=== PATIENT | female | born 1965 | race Caucasian/White ===

== ENCOUNTER 2016-12-01 06:00 | Day surgery (SDC) | payer OTHER ==
[2016-11-28 09:31] VITALS: BMI 29.5
[2016-12-01] MEDS ORDERED: ROPIVACAINE HCL 0.5% 30ML VIAL ONE (07:03)
[2016-12-01] MEDS ORDERED: DEXAMETHASONE SOD PHOSPHATE/PF 10 MG/ML SDV ONE (07:03)
[2016-12-01] MEDS ORDERED: MIDAZOLAM HCL 2 MG/2 ML SINGLE DOSE VIAL ONE ×2 (07:03→07:29)
[2016-12-01] MEDS ORDERED: BUPIVACAINE HCL/EPINEPHRINE/PF 30 ML VIAL IJ ONE (07:10)
[2016-12-01] MEDS ORDERED: PROPOFOL 20 ML ONE ×4 (07:10→08:03)
[2016-12-01] MEDS ORDERED: SUCCINYLCHOLINE CHLORIDE 200 MG/10 ML VIAL ONE (07:10)
[2016-12-01] MEDS ORDERED: ATROPINE SO4 0.4 MG/1 ML VIAL ONE (07:11)
[2016-12-01] MEDS ORDERED: EPINEPHrine 1:1,000 1 MG/1 ML - 30ML VIAL (INJECTION) ONE (07:28)
--- NOTE | 2016-12-01 07:28 | HP ---
Admitting History and Physical - Admission Chief Complaint: 51 yo F presents on 12/01/16 for planned right shoulder arthroscopy and rotator cuff repair with Dr. Gee. History of Present Illness: Patient has had chronic right shoulder pain for the past 3 years. She fell on her right shoulder one year ago which furthered her symptoms. Patient presents on 12/01/16 for planned right shoulder arthroscopy and rotator cuff repair with Dr. Gee. 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: Alzheimer's, CVA, Dementia, Migraine, Multiple Sclerosis, Peripheral Neuropathy, Parkinson's, Seizure, Syncope, TIA, Vertigo, Other Cardiovascular: Yes: Hyperlipdemia Pulmonary: No: Asthma, Bronchitis, Cancer, COPD, O2 Dependent, Pneumonia, Previously Intubated, Pulmonary Embolus, Pulmonary Fibrosis, Sleep Apnea, Other Gastrointestinal: No: Ascites, Cancer, Constipation, Crohn's Disease, Diverticulitis, Diverticulosis, Esophageal Varices, Gastritis, GERD, GI Bleed, Hemorrhoids, Hiatal Hernia, Inflamatory Bowel Disease, Irritable Bowel Disease, Pancreatitis, Peptic Ulcer Disease, Ulcerative Colitis, Other Hepatobiliary: No: Cirrhosis, Cholelithiasis, Cholecystitis, Choledocholithiasis , Hepatitis A, Hepatitis B, Hepatitis C, Other Renal/: No: Renal Failure, Renal Inusuff, BPH, Cancer, Hematuria, Hemodialysis , Neurogenic Bladder, Renal Calculi, UTI, Other ...LMP: 09/20/16 ...: No Heme/Onc: No: Anemia, B12 Deficiency, Bleeding Disorder, Cancer, Current Chemotherapy, Current Radiation Therapy, Hemochromatosis, Hypercoaguable State, Myeloproliferative Synd, Sickle Cell Disease, Sickle Cell Trait, Thrombocytopenia, Other Infectious Disease: No: AIDS, C-Diff, Herpes Zoster, HIV, MRSA, STD's, Tuberculosis, VREF, Other Psych: Yes: Anxiety Musculoskeletal: Yes: Other (Right shoulder pain) - Past Surgical History Additional Past Surgical History: Blepharoplasty - Smoking History Smoking history: Never smoked - Alcohol/Substance Use Hx Alcohol Use: No - Social History ADL: Independent Home Medications - Allergies Allergies/Adverse Reactions: Allergies Allergy/AdvReac Type Severity Reaction Status Date / Time No Known Drug Allergies Allergy Verified 12/01/16 06:55 cats Allergy Uncoded 12/01/16 06:55 seasonal Allergy Uncoded 12/01/16 06:55 - Home Medications Home Medications: Ambulatory Orders Alprazolam [Xanax] 0.25 mg PO DAILY PRN 11/28/16 Atorvastatin Ca [Lipitor] 10 mg PO HS 11/28/16 Review of Systems - Review of Systems Constitutional: reports: No Symptoms Neck: reports: No Symptoms Cardiovascular: reports: No Symptoms Respiratory: reports: No Symptoms Gastrointestinal: reports: No Symptoms Genitourinary: reports: No Symptoms Musculoskeletal: reports: Extremity Pain (Right shoulder) Integumentary: reports: No Symptoms Neurological: reports: No Symptoms Hematology/Lymphatic: reports: No Symptoms Physical Examination Vital Signs: Vital Signs Temperature 97.7 F 12/01/16 06:49 Pulse Rate 70 12/01/16 06:49 Respiratory Rate 16 12/01/16 06:49 Blood Pressure 116/74 12/01/16 06:49 O2 Sat by Pulse Oximetry (%) 99 12/01/16 06:54 Constitutional: Yes: Well Nourished, No Distress, Calm Eyes: Yes: WNL HENT: Yes: WNL Neck: Yes: WNL Cardiovascular: Yes: WNL Respiratory: Yes: WNL Gastrointestinal: Yes: WNL Musculoskeletal: Yes: WNL Integumentary: Yes: WNL Neurological: Yes: Alert, Oriented Problem List - Problems (1) Right shoulder pain Assessment/Plan: 51 yo F presents on 12/01/16 for planned right shoulder arthroscopy and rotator cuff repair with Dr. Gee. Code(s): M25.511 - PAIN IN RIGHT SHOULDER Assessment/Plan 51 yo F presents on 12/01/16 for planned right shoulder arthroscopy and rotator cuff repair with Dr. Gee.
[2016-12-01] MEDS ORDERED: ONDANSETRON 4 MG/2 ML VIAL ONE (07:49)
[2016-12-01] MEDS ORDERED: oxyCODONE HCL 10 MG SUSTAINED ACTING TABLET PO ONE (08:33)
[2016-12-01] MEDS ORDERED: oxyCODONE HCL 5 MG TABLET PO PRN (08:33)
--- NOTE | 2016-12-01 08:35 | OP ---
Operative Note - Note: Operative Date: 12/01/16 Pre-Operative Diagnosis: Right shoulder RCT Operation: RSA, biceps tenodesis, RCR, decompression Post-Operative Diagnosis: Same as Pre-op Surgeon: Boby Gee Anesthesia: Local Operative Report Dictated: Yes
--- NOTE | 2016-12-01 08:35 | DS ---
Physical Examination Vital Signs: Vital Signs Temperature 97.7 F 12/01/16 06:49 Pulse Rate 70 12/01/16 06:49 Respiratory Rate 16 12/01/16 06:49 Blood Pressure 116/74 12/01/16 06:49 O2 Sat by Pulse Oximetry (%) 99 12/01/16 06:54 Discharge Summary Reason For Visit: ROTATOR CUFF TEAR, RIGHT SHOULDER Current Active Problems Right shoulder pain (Acute) Condition: Good - Instructions Diet, Activity, Other Instructions: Post Operative Instructions: Shoulder Arthroscopy Dr Boby Gee 1. Pain following a Shoulder Arthroscopy is variable and can be significant. Some patients will have more pain than others. You have been provided with a prescription for medication that contains a narcotic. You are not allowed to drive while on this medication. You should NOT take Tylenol (Acetaminophen) when taking the pain medication ( it will result in an overdose). Feel free to take medications such as Ibuprofen or Naprosyn in addition to the pain medicine if you do not have any problems with the NSAID class of medications. 2. Apply ice to the shoulder for 15 minutes every hour. You may continue this for as many days as necessary. 3. You may find sleeping on an incline (reclining chair) to be more comfortable for the first few days. 4. You must remain in your sling at all times except when showering. The only exception to this is to allow you to stretch your elbow a few times a day to prevent your hand and forearm from swelling. 5. You are not to use your arm to reach for anything, lift anything or carry anything until instructed otherwise. 6. You may remove the bandages in 48 hours. You may shower at that point. 7. Place band-aids on the sutures after your shower.Do not put any creams or lotions on the incision until after the sutures are removed. 8. Please call the office to schedule a visit to have your sutures removed. 9. If for any reason you believe you may have an infection or are concerned, please feel free to call me. I can be reached through our office number 24 hours a day. 10. Please call our office with any questions; we will review the surgical findings during your post-operative visit. Disposition: HOME - Home Medications Comprehensive Discharge Medication List: Ambulatory Orders Alprazolam [Xanax] 0.25 mg PO DAILY PRN 11/28/16 Atorvastatin Ca [Lipitor] 10 mg PO HS 11/28/16
[2016-12-01] MEDS ORDERED: oxyCODONE HCL 10 MG SUSTAINED ACTING TABLET ONE (09:09)
[2016-12-01 10:10] VITALS: TEMP 97.6
[2016-12-01 10:12] VITALS: BP 99/67; PULSE 74
--- NOTE | 2016-12-01 10:26 | SURG ---
Surgery Helper Coordinator Note Helper Coordinator: Carmen Hall PA-C Date of Service: 12/01/16 Diagnosis: Right shoulder RCT Procedure: RSA, biceps tenodesis, RCR, decompression I was present for the entirety of the operative procedure. For further detail, please refer to operative report. Visit type - Case Type Case Type: Scheduled Admission - New patient This patient is new to me today: Yes Date on this admission: 12/01/16
--- NOTE | 2016-12-04 11:43 | PATH ---
Surgical Pathology Report Patient Name: NATALIIA LEE [facility]. Rec. #: [id number] /Age/Gender: 1965 (Age: 51) / F Account: [id number] Location: [facility] Taken: 12/01/2016 Received: 12/01/2016 Reported: 12/04/2016 Physicians: Boby Gee M.D. Specimen(s) Received RIGHT SHOULDER SHAVINGS Clinical History Rotator cuff tear right shoulder Final Diagnosis RIGHT SHOULDER, ARTHROSCOPIC SHAVING: PORTIONS OF HYPERPLASTIC SYNOVIUM WITH MILD CHRONIC INFLAMMATION, FIBROCARTILAGE WITH MYXOID DEGENERATIVE CHANGES, AND BONE, CONSISTENT WITH ARTHROSCOPIC SHAVINGS. Electronically Signed Dhruv Gomes M.D. Gross Description Received in formalin, labeled "right shoulder shavings," is a 2.5 x 2.0 x 0.3 cm. aggregate of gonzalez-yellow soft tissue fragments. A graphic art sales representative portion is submitted in one cassette. 12/01/2016 saudi12/01/2016
== END 2016-12-01 09:55 | disposition home or self-care (01) ==
LOC: FASU 06:00
PROVIDERS: ATTEND Orthopaedic Surgery
PROC: 0LQ14ZZ Repair Right Shoulder Tendon, Percutaneous Endoscopic Approach (ICD-10-PCS; 2016-12-01)
PROC: 0RBJ4ZZ Excision of Right Shoulder Joint, Percutaneous Endoscopic Approach (ICD-10-PCS; 2016-12-01)
PROC: 0LS14ZZ Reposition Right Shoulder Tendon, Percutaneous Endoscopic Approach (ICD-10-PCS; principal; 2016-12-01 07:57)
PROC: 0RNJ4ZZ Release Right Shoulder Joint, Percutaneous Endoscopic Approach (ICD-10-PCS; 2016-12-01 07:57)
DX: M75.101 Unspecified rotator cuff tear or rupture of right shoulder, not specified as traumatic (principal); M65.811 Other synovitis and tenosynovitis, right shoulder
CPT/HCPCS: 84703; 88304-TC